=== PATIENT | female | born 1990 | race Two or more races ===

== ENCOUNTER 2024-03-16 14:53 | Emergency (ER) | payer SELFPAY ==
[~2024-03-16] VITALS: Ht 167.6 cm; Wt 90.8 kg
[2024-03-16] MEDS: ACETAMINOPHEN 325 MG TAB PO ONE ×2 (15:11→15:35)
[2024-03-16 15:21] VITALS: BP 119/72; PULSE 100; RESP 18; O2SAT 97
[2024-03-16] MEDS: cefTRIAXone SOD 1,000 MG VL IM ONE (15:35)
[2024-03-16 16:14] VITALS: TEMP 99.2
[2024-03-16] MEDS ORDERED: LIDO2SOL26 MT (16:15)
[2024-03-16] MEDS ORDERED: IBUP-1456 PO ×2 (16:15)
[2024-03-16] MEDS ORDERED: AUG875T PO (16:15)
[2024-03-16] MEDS: LIDOCAINE VISCOUS 2% 15ML UD MT ONE (16:32)
== END 2024-03-16 16:33 | disposition home or self-care (01) ==
LOC: ER 14:53
DX: J03.90 Acute tonsillitis, unspecified (principal); H66.92 Otitis media, unspecified, left ear; Z79.1 Long term (current) use of non-steroidal anti-inflammatories (NSAID); Z79.2 Long term (current) use of antibiotics; Z79.899 Other long term (current) drug therapy
CPT/HCPCS: 96372; 99285; J0696